=== PATIENT | male | born 1970 | race Caucasian/White ===

== ENCOUNTER 2022-04-01 13:20 | Emergency (ER) | payer OTHER ==
[2022-04-01 13:38] VITALS: BP 140/84; PULSE 90; TEMP 98; BMI 27.1
== END 2022-04-01 14:07 | disposition home or self-care (01) ==
LOC: FER 13:20
DX: M25.511 Pain in right shoulder (principal); X50.0XXA Overexertion from strenuous movement or load, initial encounter
CPT/HCPCS: 99281-25

== ENCOUNTER 2023-05-12 09:17 | Emergency (ER) | payer BC ==
[2023-05-12] MEDS ORDERED: ADENOSINE 6 MG/2 ML VIAL IVPUSH ONE ×3 (09:29→09:38)
[2023-05-12] MEDS ORDERED: SODIUM CHLORIDE 0.9% 500 ML INFUS.BAG IV ONE (09:38)
[2023-05-12 09:44] LABS: BASO % 0.8 % (0-2.0); EOS % 3.4 % (0-4.5); HEMATOCRIT 44.2 % (35.4-49); HEMOGLOBIN 15.2 GM/dL (11.7-16.9); LYMPH % 39.3 % (8-40); MCH 29.5 pg (25.7-33.7); MCHC 34.3 g/dl (32.0-35.9); MEAN CELL VOLUME 85.8 fl (80-96); MONO % 5.7 % (3.8-10.2); NEUT % 50.8 % (42.8-82.8); PLATELET COUNT 185 10^3/uL (134-434); RBC 5.15 M/mm3 (4.00-5.60); RDW 12.9 % (11.9-15.9); WHITE BLOOD COUNT 7.5 K/mm3 (4.0-10.0)
[2023-05-12 09:47] LABS: INR 0.97 (0.83-1.09); PROTHROMBIN TIME (PATIENT) 11.2 SEC (9.7-13.0)
[2023-05-12 09:49] VITALS: TEMP 98.6; BMI 27.1
[2023-05-12 09:50] LABS: ACTIVATED PTT 33.5 SECONDS (25.2-36.5)
[2023-05-12 10:35] LABS: POTASSIUM 3.7 mmol/L (3.5-5.1)
[2023-05-12 10:36] LABS: CALCIUM 9.3 mg/dL (8.5-10.1)
[2023-05-12 10:37] LABS: ALBUMIN 4.3 g/dl (3.4-5.0); MAGNESIUM 1.8 mg/dL (1.8-2.4)
[2023-05-12 10:39] LABS: BLOOD UREA NITROGEN 17.9 mg/dL (7-18)
[2023-05-12 10:40] LABS: CREATININE 1.4 mg/dL (0.55-1.3)
[2023-05-12 10:41] LABS: BILIRUBIN,TOTAL 0.6 mg/dL (0.2-1)
[2023-05-12 10:42] LABS: TOT PROT 7.4 g/dl (6.4-8.2)
[2023-05-12 11:49] VITALS: BP 100/68; PULSE 81; RESP 15
== END 2023-05-12 11:47 | disposition home or self-care (01) ==
LOC: JER 09:17
PROC: 3E033GC Introduction of Other Therapeutic Substance into Peripheral Vein, Percutaneous Approach (ICD-10-PCS; principal; 2023-05-12)
DX: R00.2 Palpitations (principal); R42 Dizziness and giddiness; R00.0 Tachycardia, unspecified; I49.9 Cardiac arrhythmia, unspecified
CPT/HCPCS: 36415; 71045-TC-FY; 80053; 83735; 84443; 84484; 85025; 85610; 85730; 93005; 93010; 99291